=== PATIENT | female | born 1970 | race African-American/Black ===

== ENCOUNTER 2017-03-21 22:03 | Emergency (ER) | payer MEDICARE, MEDICAID ==
[~2017-03-21] VITALS: Ht 160 cm; Wt 88.5 kg
[~2017-03-21 22:03] MED LIST: ACYCLOVIR400 MG ORAL; ALBUTEROL SULF8.5 GM INH; AZITHROMYCIN250 MG ORAL; BENADRYL50 MG ORAL; CIPRO HC OTIC S10 M1 OT; CLARITIN10 M1 ORAL; CLINDAMYCIN HC300 MG ORAL; COLACE100 MG PO; CYCLOBENZAPRINE10 MG ORAL; DEBROX15 M1 OT; FLONASE1 SPRAYS NASAL; GENTAK3.5 GM OP; IBUPROFEN600 MG ORAL; IBUPROFEN800 MG ORAL; KEFLEX500 MG ORAL; KENALOG 0.1% CR15 GM APPLIC; MEDROL DOSEPAK4 MG ORAL; METRONIDAZOLE500 MG ORAL; NAPROSYN500 M1 ORAL; NKM; NYSTATIN100000 UN1 ORAL; PHENAZOPYRIDIN100 MG ORAL; PREDNISONE20 M1 PO; PREDNISONE20 MG ORAL; PROMETHAZINE-C118 M1 ORAL; PROMETHAZINE-D118 ML ORAL; PSEUDOEPHEDRINE30 MG PO; ROBAXIN500 MG PO; SUDAFED60 MG ORAL; TESSALON PERLE100 M2 ORAL; TESSALON PERLE100 MG ORAL; TRAMADOL HCL50 MG ORAL; TRIAMCINOLONE A80 GM TP; VICODIN 5-5001 EACH PO
[2017-03-21 22:10] VITALS: BP 151/88
[2017-03-21] MEDS ORDERED: HYDROCORTISONE28 G2 TP (23:08)
[2017-03-21] MEDS ORDERED: CLARITIN10 M2 ORAL (23:08)
[2017-03-21 23:20] VITALS: BP 137/79
--- NOTE | 2017-03-22 20:49 | Emergency Room Report ---
History of Present Illness General Chief Complaint: Vaginal Source: Patient Present Illness HPI Patient is a 46-year-old female presented after increased vaginal discharge. She gradual onset of symptoms. Patient reports having increased a vulvar itching. She reports having some skin lesions to her vulvar area. She denied vomiting she denied severe pain. Allergies: Coded Allergies: No Known Allergies (Unverified , 03/21/17) Patient History Past Medical History: see triage record Last Menstrual Period: this week Now: No Reviewed Nursing Documentation: PMH: Agreed, PSxH: Agreed Nursing Documentation-PMH Past Medical History: No History, Except For Hx Cardiac Problems: Yes - alopecia, eczcema Review of Systems All Other Systems: negative except mentioned in HPI Physical Exam Vital Signs Date Time Temp Pulse Resp B/P Pulse Ox O2 Delivery O2 Flow Rate FiO2 03/21/17 22:10 98.2 67 16 151/88 99 Room Air General Appearance: well appearing, no apparent distress Head: normocephalic, atraumatic ENT: hearing grossly normal, normal voice Neck: full range of motion, supple Respiratory: no respiratory distress, speaking full sentences Cardiovascular #1: normal peripheral pulses, no edema Gastrointestinal: normal inspection, non tender, soft Genitourinary: normal inspection, no CVA tenderness, other - slight increased papular lesion to vulvar area, no discharge noted Musculoskeletal: no calf tenderness Neurologic: normal gait Psychiatric: mood/affect normal Skin: no rash Medical Decision Making Diagnostic Impression: Primary Impression: Vaginitis ER Course The patient presented for vulvar lesion. Differential diagnosis included wasn' t limited to folliculitis, herpes, among others. Patient's benign exam and does not appear to require any further imaging or laboratory testing at this time. Patient is advised to followup with her [facility] for reevaluation. Patient was given prescription for hydrocortisone cream and she appears to have some evidence of a contact dermatitis. Last Vital Signs Date Time Temp Pulse Resp B/P Pulse Ox O2 Delivery O2 Flow Rate FiO2 03/21/17 23:21 98.2 88 16 137/79 99 Room Air Status: improved Disposition: HOME, SELF-CARE Condition: Stable Scripts Loratadine (CLARITIN) 10 Mg Capsule 10 MG ORAL DAILY, #30 CAP Prov: Navarro Mckeon 03/21/17 Hydrocortisone Acetate 1% Onit (HYDROCORTISONE 1% OINT) Y Oint 28 GM TP DAILY, #30 GM Prov: Navarro Mckeon 03/21/17 Referrals: [facility]ERR[facility] (PCP) Patient Instructions: Vaginitis Navarro Mckeon March 22, 2017 20:49
== END 2017-03-21 23:21 | disposition home or self-care (01) ==
LOC: EMR 22:25
DX: N76.0 Acute vaginitis (principal)
CPT/HCPCS: 99284

== ENCOUNTER 2017-08-11 12:10 | Emergency (ER) | payer MEDICARE, MEDICAID ==
[~2017-08-11] VITALS: Ht 160 cm; Wt 88.0 kg
[~2017-08-11 12:10] MED LIST changes: +CLARITIN10 M2 ORAL; +HYDROCORTISONE28 G2 TP
[2017-08-11] MEDS ORDERED: TRIAMCINOLONE10 G1 MC ×2 (12:41→12:56)
--- NOTE | 2017-08-11 12:42 | Emergency Room Report ---
History of Present Illness General Chief Complaint: bump on tongue Present Illness HPI Patient is a 47-year-old female who presents today with a "bump" on her tongue she noticed 3 days ago. Patient states she has some mild pain in the "bump" is rubbing against her dental implant on the same side. Patient also states she has a history of eczema and has noticed a minute itchy rash on her bilateral upper extremities and trunk. She denies shortness of breath, fever, chills or associated symptoms. Allergies: Coded Allergies: No Known Allergies (Unverified , 03/21/17) Patient History Reviewed Nursing Documentation: PMH: Agreed, PSxH: Agreed Nursing Documentation-PMH Hx Cardiac Problems: Yes - alopecia, eczcema Review of Systems ENT: Reports: other - "bump" on tongue Skin: Reports: rash All Other Systems: negative except mentioned in HPI Physical Exam Sp02 EP Interpretation: reviewed, normal General Appearance: no apparent distress, alert, GCS 15, non-toxic Head: normocephalic, atraumatic Eyes: bilateral eye normal inspection, bilateral eye PERRL ENT: hearing grossly normal, normal pharynx, no angioedema, normal voice, other - apthous ulcer on lateral aspect of left side of tongue. No ludwigs angina or peritonsilar abscess Neck: full range of motion, supple/symm/no masses Respiratory: chest non-tender, lungs clear, normal breath sounds, speaking full sentences Cardiovascular #1: regular rate, rhythm, no edema Cardiovascular #2: 2+ carotid (R), 2+ carotid (L), 2+ radial (R), 2+ radial (L) , 2+ dorsalis pedis (R), 2+ dorsalis pedis (L) Gastrointestinal: normal bowel sounds, non tender, soft, non-distended, no guarding, no rebound Rectal: deferred Genitourinary: normal inspection, no CVA tenderness Musculoskeletal: back normal, gait/station normal, normal range of motion, non- tender, calf tenderness Neurologic: alert, oriented x3, responsive, motor strength/tone normal, sensory intact, speech normal Psychiatric: judgement/insight normal, memory normal, mood/affect normal, no suicidal/homicidal ideation Reflexes: 3+ bicep (R), 3+ bicep (L), 3+ tricep (R), 3+ tricep (L), 3+ knee (R) , 3+ knee (L) Skin: normal color, warm/dry, well hydrated, rash - maculopapular erruption on trunk and bLE Lymphatic: no adenopathy Medical Decision Making PA Attestation Resident physician is Dr. Mckeon ER Course Patient have an abscess ulcer on her tongue that, will prescribe Magic mouth rinse. And no need for further workup. Patient also found to have eczematous eruption on her upper extremities and trunk. Will prescribe transit and will dermatology. In patient with plan. Status: improved Disposition: HOME, SELF-CARE Condition: Stable Scripts Triamcinolone (TRIAMCINOLONE) 10 Gm Powder 10 GM MC BID, #20 GM Prov: Cammy Ace P.A. 08/11/17 Triamcinolone (TRIAMCINOLONE) 10 Gm Powder 10 GM MC BID, #14 GM Prov: Cammy Ace P.A. 08/11/17 Cammy Ace P.AZan Aug 11, 2017 12:42
[2017-08-11 12:58] VITALS: BP 104/69
[2017-08-11] MEDS ORDERED: TRIAMCINOLONE A15 G1 TP (15:23)
== END 2017-08-11 13:02 | disposition home or self-care (01) ==
LOC: EMR 12:41
DX: K12.0 Recurrent oral aphthae (principal); R21 Rash and other nonspecific skin eruption
CPT/HCPCS: 99283

== ENCOUNTER 2017-11-24 16:21 | Emergency (ER) | payer MEDICARE, MEDICAID ==
[~2017-11-24] VITALS: Ht 160 cm; Wt 86.2 kg
[~2017-11-24 16:21] MED LIST changes: +TRIAMCINOLONE A15 G1 TP; +TRIAMCINOLONE10 G1 MC
[2017-11-24 17:03] LABS: APPEARANCE,URINE CLEAR; BILIRUBIN, URINE NEGATIVE (NEGATIVE); COLOR,URINE PALE YELLOW; GLUCOSE, URINE (UA) NEGATIVE (NEGATIVE); KETONES,URINE NEGATIVE (NEGATIVE); LEUKOCYTE ESTERASE ,URINE NEGATIVE (NEGATIVE); NITRITE,URINE NEGATIVE (NEGATIVE); PH,URINE 6.5 (4.5-8.0); PROTEIN,URINE NEGATIVE (NEGATIVE); UROBILINOGEN,URINE NORMAL MG/DL (0.0-1.0)
[2017-11-24] MEDS ORDERED: NAPROXEN500 M2 ORAL (17:35)
[2017-11-24 17:45] VITALS: BP 126/86
--- NOTE | 2017-11-24 22:58 | Emergency Room Report ---
History of Present Illness General Chief Complaint: General Complaint Source: Patient Present Illness HPI The patient is a 47 old female presenting for concern of not having her period for the past month. She states that she is usually regular every month. She denies any medical problems. She denies any pain or other symptoms including dysuria, hematuria, vaginal discharge, back pain, abdominal pain Allergies: Coded Allergies: No Known Allergies (Unverified , 03/21/17) Patient History Past Medical History: see triage record Pertinent Family History: none Last Menstrual Period: "More than a month." Now: No Reviewed Nursing Documentation: PMH: Agreed, PSxH: Agreed Review of Systems All Other Systems: negative except mentioned in HPI Physical Exam Vital Signs Date Time Temp Pulse Resp B/P (MAP) Pulse Ox O2 Delivery O2 Flow Rate FiO2 11/24/17 16:41 98.1 72 16 122/81 97 Room Air Sp02 EP Interpretation: reviewed, normal General Appearance: no apparent distress, alert, GCS 15, non-toxic Head: normocephalic, atraumatic Eyes: bilateral eye normal inspection, bilateral eye PERRL ENT: hearing grossly normal, normal pharynx, no angioedema, normal voice Respiratory: chest non-tender, lungs clear, normal breath sounds, speaking full sentences Gastrointestinal: normal bowel sounds, non tender, soft, non-distended, no guarding, no rebound Rectal: deferred Genitourinary: normal inspection, no CVA tenderness Musculoskeletal: back normal, gait/station normal, normal range of motion, non- tender Neurologic: alert, oriented x3, responsive, motor strength/tone normal, sensory intact, speech normal Psychiatric: judgement/insight normal, memory normal, mood/affect normal, no suicidal/homicidal ideation Skin: normal color, no rash, warm/dry, well hydrated Medical Decision Making PA Attestation Dr. Kendall is my supervising physician. Patient management was discussed with my supervising physician Diagnostic Impression: Primary Impression: Perimenopause ER Course The patient is a 47 old female presenting for concern of not having her period for the past month Differential diagnosis considered but not limited to: perimenopause, UTI, vaginitis, , among others PE: Vitals WNL. NAD. Abdomen: Normal appearance. Non distended. No ecchymosis. Normal BS. Non TTP. No McBurney point tenderness. No guarding. No CVA tenderness Urinalysis unremarkable The patient be discharged home with prescription for Motrin and will follow up with her primary doctor. ER Precautions are given Laboratory Tests Test 11/24/17 16:54 Urine Color Pale yellow Urine Appearance Clear Urine pH 6.5 (4.5-8.0) Urine Specific [place] 1.015 (1.005-1.035) Urine Protein Negative (NEGATIVE) Urine Glucose (UA) Negative (NEGATIVE) Urine Ketones Negative (NEGATIVE) Urine Occult Blood Negative (NEGATIVE) Urine Nitrite Negative (NEGATIVE) Urine Bilirubin Negative (NEGATIVE) Urine Urobilinogen Normal MG/DL (0.0-1.0) Urine Leukocyte Esterase Negative (NEGATIVE) Urine HCG, Qualitative Negative Lab Results Impression Unremarkable Last Vital Signs Date Time Temp Pulse Resp B/P (MAP) Pulse Ox O2 Delivery O2 Flow Rate FiO2 11/24/17 17:45 98.1 72 16 126/86 98 Room Air Status: improved Disposition: HOME, SELF-CARE Condition: Improved Scripts Naproxen* (NAPROXEN*) 500 Mg Tablet 500 MG ORAL TWICE A WEEK, #60 TAB 0 Refills Prov: ANAHY CAMARILLO 11/24/17 Referrals: NON PHYSICIAN (PCP) Patient Instructions: Menopause Additional Instructions: I discussed my findings with the patient. All questions and concerns have been answered. Treatment and medication compliance have been addressed. I advised the patient that they need to follow up with PMD in 3-5 days. Return to ED if symptoms worsen, new symptoms arise, or if needed for any reason. Patient verbalized understanding of discharge instructions. ANAHY CAMARILLO Nov 24, 2017 22:58
== END 2017-11-24 17:45 | disposition home or self-care (01) ==
LOC: EMR 17:40
DX: N92.6 Irregular menstruation, unspecified (principal)
CPT/HCPCS: 81003; 81025; 99283

== ENCOUNTER 2018-02-09 15:02 | Emergency (ER) | payer MEDICARE, MEDICAID ==
[~2018-02-09] VITALS: Ht 160 cm; Wt 86.2 kg
[~2018-02-09 15:02] MED LIST changes: +NAPROXEN500 M2 ORAL
[2018-02-09] MEDS ORDERED: antibiotics (15:15)
[2018-02-09 16:13] LABS: APPEARANCE,URINE SLIGHTLY CLOUDY; BILIRUBIN, URINE NEGATIVE (NEGATIVE); COLOR,URINE PALE YELLOW; GLUCOSE, URINE (UA) NEGATIVE (NEGATIVE); KETONES,URINE NEGATIVE (NEGATIVE); LEUKOCYTE ESTERASE ,URINE 1+ (NEGATIVE); NITRITE,URINE NEGATIVE (NEGATIVE); PH,URINE 6 (4.5-8.0); PROTEIN,URINE NEGATIVE (NEGATIVE); UROBILINOGEN,URINE NORMAL MG/DL (0.0-1.0)
[2018-02-09] MEDS ORDERED: Fluconazole 100mg tab ORAL ONE (16:30)
[2018-02-09] MEDS ORDERED: BACITRACIN15 GM TOPIC (16:48)
[2018-02-09 16:50] VITALS: BP 125/66
--- NOTE | 2018-02-09 20:54 | Emergency Room Report ---
History of Present Illness General Chief Complaint: Vaginal Source: Patient Present Illness HPI The patient is a 47 revealed female presenting for possible vaginal infection. She states that she is currently taking antibiotics after facial surgery. She began to develop a thick white discharge 2 days ago. She also admits to itching in the pelvic region. She denies other symptoms including dysuria, hematuria, abdominal pain, nausea, vomiting, back pain Allergies: Coded Allergies: No Known Allergies (Unverified , 03/21/17) Patient History Past Medical History: see triage record Pertinent Family History: none Now: No Reviewed Nursing Documentation: PMH: Agreed; PSxH: Agreed Nursing Documentation-PMH Past Medical History: No History, Except For Review of Systems All Other Systems: negative except mentioned in HPI Physical Exam Vital Signs Date Time Temp Pulse Resp B/P (MAP) Pulse Ox O2 Delivery O2 Flow Rate FiO2 02/09/18 15:10 98.1 65 19 137/88 100 Room Air 98.1 Sp02 EP Interpretation: reviewed, normal General Appearance: no apparent distress, alert, GCS 15, non-toxic Head: normocephalic, atraumatic Eyes: bilateral eye normal inspection, bilateral eye PERRL ENT: hearing grossly normal, normal pharynx, no angioedema, normal voice Neck: full range of motion, supple/symm/no masses Respiratory: chest non-tender, lungs clear, normal breath sounds, speaking full sentences Gastrointestinal: normal bowel sounds, non tender, soft, non-distended, no guarding, no rebound Rectal: deferred Genitourinary: normal inspection, no CVA tenderness, other - Vaginal: thick white DC noted. No odor. Musculoskeletal: back normal, gait/station normal, normal range of motion, non- tender Neurologic: alert, oriented x3, responsive, motor strength/tone normal, sensory intact, speech normal Psychiatric: judgement/insight normal, memory normal, mood/affect normal, no suicidal/homicidal ideation Skin: normal color, no rash, warm/dry, well hydrated, abrasions - Labia Medical Decision Making PA Attestation Dr. Inman is my supervising physician. Patient management was discussed with my supervising physician Diagnostic Impression: Primary Impression: Abrasion Additional Impression: Vaginal yeast infection ER Course The patient is a 47 revealed female presenting for possible vaginal infection Differential diagnosis considered but not limited to: Vaginal yeast infection, UTI, vaginitis, pyelonephritis, pyelonephrosis, PID, ectopic PE: Vitals WNL. NAD. Abdomen: Normal appearance. Non distended. No ecchymosis. Normal BS. Non TTP. No McBurney point tenderness. No guarding. Pelvic exam: Done with nurse in room. Minor abrasion to labia. White DC noted. No odor No CVA tenderness UA unremarkable. Neg preg The patient is treated with Diflucan in the emergency department on be discharged home with prescription for bacitracin. ER precautions are given Laboratory Tests Test 02/09/18 15:20 Urine Color Pale yellow Urine Appearance Slightly cloudy Urine pH 6 (4.5-8.0) Urine Specific [place] 1.015 (1.005-1.035) Urine Protein Negative (NEGATIVE) Urine Glucose (UA) Negative (NEGATIVE) Urine Ketones Negative (NEGATIVE) Urine Occult Blood Negative (NEGATIVE) Urine Nitrite Negative (NEGATIVE) Urine Bilirubin Negative (NEGATIVE) Urine Urobilinogen Normal MG/DL (0.0-1.0) Urine Leukocyte Esterase 1+ (NEGATIVE) H Urine RBC 0-2 /HPF (0 - 2) Urine WBC 0-2 /HPF (0 - 2) Urine Squamous Epithelial Cells Moderate /LPF (NONE/OCC) H Urine Bacteria Few /HPF (NONE) Urine HCG, Qualitative Negative (NEGATIVE) Lab Results Impression squamous cells. Otherwise unremarkable Last Vital Signs Date Time Temp Pulse Resp B/P (MAP) Pulse Ox O2 Delivery O2 Flow Rate FiO2 02/09/18 16:50 98.6 76 15 125/66 99 Room Air Status: improved Disposition: HOME, SELF-CARE Condition: Improved Scripts Bacitracin (Bacitracin) 28.4 Gm Oint...g. 1 APPLIC TOPIC THREE TIMES A DAY, #28 GM Prov: ANAHY CAMARILLO 02/09/18 Referrals: [facility] (PCP) Patient Instructions: Abrasion, Vaginal Yeast Infection, Adult Additional Instructions: I discussed my findings with the patient. All questions and concerns have been answered. Treatment and medication compliance have been addressed. I advised the patient that they need to follow up with PMD in 3-5 days. Return to ED if symptoms worsen, new symptoms arise, or if needed for any reason. Patient verbalized understanding of discharge instructions. ANAHY CAMARILLO Feb 09, 2018 20:54
== END 2018-02-09 16:50 | disposition home or self-care (01) ==
LOC: EMR 16:00
DX: B37.3 Candidiasis of vulva and vagina (principal); S30.814A Abrasion of vagina and vulva, initial encounter; X58.XXXA Exposure to other specified factors, initial encounter; Y92.9 Unspecified place or not applicable
CPT/HCPCS: 81003; 81025; 99283

== ENCOUNTER 2018-05-19 17:12 | Emergency (ER) | payer MEDICARE, MEDICAID ==
[~2018-05-19] VITALS: Ht 160 cm; Wt 87.1 kg
[~2018-05-19 17:12] MED LIST changes: +BACITRACIN15 GM TOPIC; +antibiotics
[2018-05-19 17:20] VITALS: BP 106/75
--- NOTE | 2018-05-19 17:32 | Emergency Room Report ---
History of Present Illness General Chief Complaint: Skin Rash/Abscess Source: Patient, Medical Record Present Illness HPI 47-year-old female with history of alopecia here complaining of 2 days of pruritic rash on face and torso and upper extremities. Patient claims that the rash started after visiting her aunt's at her house, denies exposure to new allergens, denies exposure to animals, new food, corneal medication intake. Patient mentioned that every time that she goes to her oncologist she breaks into hives. Denies painful lesions, SOB, chest pain, difficulty swallowing, dictation, headache. Patient has not been taking any Benadryl or any other allergy medications as she is afraid it will make her sleepy. she further denies any recent travel. Patient also complains of 2 days of rhinorrhea, congestion, denies fever/chills , cough, SOB, sore throat, ear pain. Patient has not been taking any decongestants or any other medication for relief of her symptoms Allergies: Coded Allergies: No Known Allergies (Unverified , 03/21/17) Patient History Past Medical History: see triage record Past Surgical History: none Pertinent Family History: none Now: No Immunizations: UTD Reviewed Nursing Documentation: PMH: Agreed; PSxH: Agreed Nursing Documentation-PMH Past Medical History: No History, Except For Review of Systems All Other Systems: negative except mentioned in HPI Physical Exam Vital Signs Date Time Temp Pulse Resp B/P (MAP) Pulse Ox O2 Delivery O2 Flow Rate FiO2 05/19/18 17:15 97.9 78 18 106/75 98 Room Air 97.9 Sp02 EP Interpretation: reviewed, normal General Appearance: normal inspection, well appearing, no apparent distress Head: normocephalic, atraumatic Eyes: bilateral eye normal inspection, bilateral eye PERRL ENT: normal ENT inspection, normal pharynx, no angioedema, uvula midline, moist mucus membranes, other - diffuse papular rash on face and neck Neck: normal inspection, full range of motion, supple Respiratory: normal inspection, chest non-tender, lungs clear, normal breath sounds, no rhonchi, no respiratory distress, no retraction, no accessory muscle use Cardiovascular #1: normal inspection, normal peripheral pulses, regular rate, rhythm, no edema, no gallop, no murmur Gastrointestinal: normal inspection, normal bowel sounds, non tender, soft Rectal: deferred Genitourinary: deferred Musculoskeletal: normal inspection, back normal Neurologic: normal inspection, alert, oriented x3 Psychiatric: normal inspection, judgement/insight normal, memory normal Skin: warm/dry, rash - diffuse papules on face, trunk, upper extremities, Lymphatic: normal inspection, no adenopathy, axilla node tender (R) Medical Decision Making PA Attestation all patient's orders, diagnosis, treatment plans were discussed and reviewed by myself provider physician Dr. Vann Diagnostic Impression: Primary Impression: Allergic reaction, urticaria Additional Impression: URI (upper respiratory infection) ER Course 47-year-old female with history of alopecia here complaining of 2 days of pruritic rash on face and torso and upper extremities. Patient claims that the rash started after visiting her aunt's at her house, denies exposure to new allergens, denies exposure to animals, new food, corneal medication intake. Patient mentioned that every time that she goes to her oncologist she breaks into hives. Denies painful lesions, SOB, chest pain, difficulty swallowing, dictation, headache. Patient has not been taking any Benadryl or any other allergy medications as she is afraid it will make her sleepy. she further denies any recent travel. Patient also complains of 2 days of rhinorrhea, congestion, denies fever/chills , cough, SOB, sore throat, ear pain. Patient has not been taking any decongestants or any other medication for relief of her symptoms Ddx considered but are not limited to allergic reaction unspecified, URI, anaphyalsis Vital signs: are WNL, pt. is afebrile H&PE are most consistent with allergic reaction unseprificed, URI ORDERS: hdyrocrotisone cream, medrol dose pack, benadryl, mucinex D ED INTERVENTIONS: None required at this time. DISCHARGE: At this time pt. is stable for d/c to home. Will provide printed patient care instructions, and any necessary prescriptions. Care plan and follow up instructions have been discussed with the patient prior to discharge. Last Vital Signs Date Time Temp Pulse Resp B/P (MAP) Pulse Ox O2 Delivery O2 Flow Rate FiO2 05/19/18 17:20 97.9 84 18 106/75 98 Room Air 97.9 Disposition: HOME, SELF-CARE Condition: Stable Scripts Guaifenesin/Pseudoephedrne Hcl (MUCINEX D ER 600-60 MG TABLET) 1 Each Tab.er.12h 1 EACH PO BID for 5 Days, #10 TAB Prov: Kali Walsh 05/19/18 Hydrocortisone (Hydrocortisone Cream 2.5%) Y Cream.appl 1 APPLIC TP BID for 10 Days, GM Prov: Kali Walsh 05/19/18 Diphenhydramine HCl (Benadryl) 25 Mg Capsule 25 MG PO EVERY 12 HOURS, #20 CAP Prov: Kali Walsh 05/19/18 Methylprednisolone* (MEDROL*) 4 Mg Tablet 4 MG ORAL DAILY, #10 TAB 0 Refills Prov: Kali Walsh 05/19/18 Patient Instructions: Upper Respiratory Infection, Adult, Rash Additional Instructions: take medication as directed, taper steroids, do not take steroids and benadryl at the same time. steroids may cause increased in blood pressure. if fever/ chills, difficulty breathing retrun to ED. follow up with pcp in 2 days. Kali Walsh May 19, 2018 17:32
[2018-05-19] MEDS ORDERED: MEDROL4 MG ORAL (17:35)
[2018-05-19] MEDS ORDERED: MUCINEX D ER 61 EACH PO (17:35)
[2018-05-19] MEDS ORDERED: HYDROCORTISONE30 G2 TP (17:35)
[2018-05-19] MEDS ORDERED: BENADRYL25 M3 PO (17:35)
[2018-05-19 17:40] VITALS: BP 106/75
== END 2018-05-19 17:40 | disposition home or self-care (01) ==
LOC: EMR 17:35
DX: L50.0 Allergic urticaria (principal); J06.9 Acute upper respiratory infection, unspecified
CPT/HCPCS: 99284

== ENCOUNTER 2018-05-25 11:30 | Emergency (ER) | payer MEDICARE, MEDICAID ==
[~2018-05-25] VITALS: Ht 160 cm; Wt 85.3 kg
[~2018-05-25 11:30] MED LIST changes: +BENADRYL25 M3 PO; +HYDROCORTISONE30 G2 TP; +MEDROL4 MG ORAL; +MUCINEX D ER 61 EACH PO
[2018-05-25 11:46] VITALS: BP 115/79
[2018-05-25] MEDS ORDERED: Sodium Chloride 500ML 500 ML IV ONE (11:54)
[2018-05-25] MEDS ORDERED: Isovue-300 100ml vial INJ PRN (12:00)
[2018-05-25] MEDS ORDERED: Morphine Sulfate 4mg/ml Inj IVP ONE (12:00)
[2018-05-25 12:31] LABS: BASOPHILS % (AUTO) 1.3 % (0.0-2.0); EOSINOPHILS % (AUTO) 1.5 % (0.0-3.0); HEMOGLOBIN 13.4 G/DL (12.0-16.0); LYMPHOCYTES % (AUTO) 35.8 % (20.0-45.0); MEAN CORPUSCULAR VOLUME 83 FL (80-99); MONOCYTES % (AUTO) 8.2 % (1.0-10.0); NEUTROPHILS % (AUTO) 53.3 % (45.0-75.0); PLATELET COUNT 279 K/UL (150-450); RED BLOOD COUNT 5.03 M/UL (4.20-5.40); RED CELL DISTRIBUTION WIDTH 13.2 % (11.6-14.8); WHITE BLOOD COUNT 6.1 K/UL (4.8-10.8)
[2018-05-25 12:33] LABS: APPEARANCE,URINE CLEAR; BILIRUBIN, URINE NEGATIVE (NEGATIVE); GLUCOSE, URINE (UA) NEGATIVE (NEGATIVE); KETONES,URINE NEGATIVE (NEGATIVE); LEUKOCYTE ESTERASE ,URINE NEGATIVE (NEGATIVE); NITRITE,URINE NEGATIVE (NEGATIVE); PH,URINE 6 (4.5-8.0); PROTEIN,URINE NEGATIVE (NEGATIVE); UROBILINOGEN,URINE NORMAL MG/DL (0.0-1.0)
[2018-05-25 12:36] LABS: ANION GAP 7 mmol/L (5-15); BLOOD UREA NITROGEN 18 mg/dL (7-18); CALCIUM 9.3 MG/DL (8.5-10.1); CARBON DIOXIDE 30 MMOL/L (21-32); CHLORIDE 101 MMOL/L (98-107); CREATININE 0.9 MG/DL (0.55-1.30); POTASSIUM 3.8 MMOL/L (3.5-5.1); SODIUM 138 MMOL/L (136-145)
[2018-05-25 12:38] LABS: COLOR,URINE YELLOW
[2018-05-25 12:40] LABS: ALANINE AMINOTRANSFERASE 25 U/L (12-78); ALBUMIN 3.9 G/DL (3.4-5.0); ALBUMIN/GLOBULIN RATIO 0.9 (1.0-2.7); ALKALINE PHOSPHATASE 83 U/L (46-116); ASPARTATE AMINO TRANSFERASE 19 U/L (15-37); BILIRUBIN,TOTAL 0.3 MG/DL (0.2-1.0)
--- NOTE | 2018-05-25 13:36 | Emergency Room Report ---
History of Present Illness General Chief Complaint: Abdominal Pain Source: Patient Present Illness HPI 47-year-old female presents ED for evaluation. Patient complaining of abdominal pain for last 2 weeks. Pain is localized to left upper quadrant, 7 out of 10, dull, nonradiating. Denies fevers chills. Denies nausea or vomiting. Denies chest pain or shortness of breath. Denies dysuria or hematuria. No other aggravating relieving factors. Denies any other associated symptoms Allergies: Coded Allergies: No Known Allergies (Unverified , 03/21/17) Patient History Past Medical History: none Past Surgical History: none Pertinent Family History: none Social History: Denies: smoking, alcohol use, drug use Last Menstrual Period: 05/18/18 Now: No Immunizations: UTD Reviewed Nursing Documentation: PMH: Agreed; PSxH: Agreed Nursing Documentation-PMH Past Medical History: No History, Except For Review of Systems All Other Systems: negative except mentioned in HPI Physical Exam Vital Signs Date Time Temp Pulse Resp B/P (MAP) Pulse Ox O2 Delivery O2 Flow Rate FiO2 05/25/18 11:33 98.5 60 16 115/79 95 Room Air 98.4 Sp02 EP Interpretation: reviewed, normal General Appearance: no apparent distress, alert, GCS 15, non-toxic Head: normocephalic, atraumatic Eyes: bilateral eye normal inspection, bilateral eye PERRL ENT: hearing grossly normal, normal pharynx, no angioedema, normal voice Neck: full range of motion, supple/symm/no masses Respiratory: chest non-tender, lungs clear, normal breath sounds, speaking full sentences Cardiovascular #1: regular rate, rhythm, no edema Cardiovascular #2: 2+ carotid (R), 2+ carotid (L), 2+ radial (R), 2+ radial (L) , 2+ dorsalis pedis (R), 2+ dorsalis pedis (L) Gastrointestinal: normal bowel sounds, soft, non-distended, no guarding, no rebound, tenderness - LUQ Rectal: deferred Genitourinary: normal inspection, no CVA tenderness Musculoskeletal: back normal, gait/station normal, normal range of motion, non- tender Neurologic: alert, oriented x3, responsive, motor strength/tone normal, sensory intact, speech normal Psychiatric: judgement/insight normal, memory normal, mood/affect normal, no suicidal/homicidal ideation Reflexes: 3+ bicep (R), 3+ bicep (L), 3+ tricep (R), 3+ tricep (L), 3+ knee (R) , 3+ knee (L) Skin: normal color, no rash, warm/dry, well hydrated Lymphatic: no adenopathy Medical Decision Making Diagnostic Impression: Primary Impression: Enteritis ER Course Hospital Course 47-year-old F presents to ED with abdominal pain Differential diagnosis includes-appendicitis, cholecystitis, small bowel obstruction, gastritis, Clinical course Patient placed on stretcher. After initial history and physical I ordered labs , IV fluids, pain medications and CT scan Labs - no leukocytosis, electrolytes ok, LFTs normal, UA unremarkable CT scan shows some enteritis, some constipation, hepatic lesions ? hemangioma Discussed findings with the patient. Discussed the hepatic lesions and recommend close follow-up with PMD for outpatient workup. I feel this is a highly complex case requiring extensive working including EKG/ Rhythm strip, Xray/CT/US, Blood/urine lab work, repeat exams while in ED, and administration of strong opiates/narcotics for pain control, admission to hospital or close patient follow up. Diagnosis - enteritis Stable and discharged to home with Rx Bentyl, Zantac. Followup with PMD. Return to ED if symptoms recur or worsen Labs Test 05/25/18 11:50 05/25/18 11:55 White Blood Count 6.1 K/UL (4.8-10.8) Red Blood Count 5.03 M/UL (4.20-5.40) Hemoglobin 13.4 G/DL (12.0-16.0) Hematocrit 42.0 % (37.0-47.0) Mean Corpuscular Volume 83 FL (80-99) Mean Corpuscular Hemoglobin 26.6 PG (27.0-31.0) Mean Corpuscular Hemoglobin Concent 31.9 G/DL (32.0-36.0) Red Cell Distribution Width 13.2 % (11.6-14.8) Platelet Count 279 K/UL (150-450) Mean Platelet Volume 5.9 FL (6.5-10.1) Neutrophils (%) (Auto) 53.3 % (45.0-75.0) Lymphocytes (%) (Auto) 35.8 % (20.0-45.0) Monocytes (%) (Auto) 8.2 % (1.0-10.0) Eosinophils (%) (Auto) 1.5 % (0.0-3.0) Basophils (%) (Auto) 1.3 % (0.0-2.0) Sodium Level 138 MMOL/L (136-145) Potassium Level 3.8 MMOL/L (3.5-5.1) Chloride Level 101 MMOL/L (98-107) Carbon Dioxide Level 30 MMOL/L (21-32) Anion Gap 7 mmol/L (5-15) Blood Urea Nitrogen 18 mg/dL (7-18) Creatinine 0.9 MG/DL (0.55-1.30) Estimat Glomerular Filtration Rate > 60 mL/min (>60) Glucose Level 77 MG/DL (74-106) Calcium Level 9.3 MG/DL (8.5-10.1) Total Bilirubin 0.3 MG/DL (0.2-1.0) Aspartate Amino Transf (AST/SGOT) 19 U/L (15-37) Alanine Aminotransferase (ALT/SGPT) 25 U/L (12-78) Alkaline Phosphatase 83 U/L (46-116) Total Protein 8.1 G/DL (6.4-8.2) Albumin 3.9 G/DL (3.4-5.0) Globulin 4.2 g/dL Albumin/Globulin Ratio 0.9 (1.0-2.7) Lipase 126 U/L (73-393) Urine Color Yellow Urine Appearance Clear Urine pH 6 (4.5-8.0) Urine Specific [place] 1.015 (1.005-1.035) Urine Protein Negative (NEGATIVE) Urine Glucose (UA) Negative (NEGATIVE) Urine Ketones Negative (NEGATIVE) Urine Occult Blood Negative (NEGATIVE) Urine Nitrite Negative (NEGATIVE) Urine Bilirubin Negative (NEGATIVE) Urine Urobilinogen Normal MG/DL (0.0-1.0) Urine Leukocyte Esterase Negative (NEGATIVE) Urine HCG, Qualitative Negative (NEGATIVE) CT/MRI/US Diagnostic Results CT/MRI/US Diagnostic Results : Imaging Test Ordered: CT A/P Impression 1. Mild fluid distention of small bowel loops which may represent mild ileus or enteritis. No evidence of bowel obstruction. 2. Mild constipation. 3. Scattered hypoenhancing hepatic lesions, largest measuring 2.2 cm in the posterior right hepatic lobe. These likely represent hemangiomas but remain indeterminate. If there is continued clinical concern, these can be further characterized with ultrasound and/or MRI Last Vital Signs Date Time Temp Pulse Resp B/P (MAP) Pulse Ox O2 Delivery O2 Flow Rate FiO2 05/25/18 12:48 98.4 05/25/18 11:46 16 115/79 95 Room Air 05/25/18 11:33 60 Status: improved Disposition: HOME, SELF-CARE Condition: Stable Scripts Ranitidine Hcl* (ZANTAC*) 150 Mg Tablet 150 MG ORAL TWICE A DAY, #30 TAB Prov: Abelino Tinajero MD 05/25/18 Dicyclomine Hcl* (DICYCLOMINE HCL*) 10 Mg Capsule 10 MG PO QID, #20 CAP Prov: Abelino Tinajero MD 05/25/18 Referrals: NON PHYSICIAN (PCP) Abelino Tinajero MD May 25, 2018 13:36
--- NOTE | 2018-05-25 13:47 | Diagnostic Imaging Report ---
EXAM: CT Abdomen and Pelvis With Intravenous Contrast CLINICAL HISTORY: ABD PAIN TECHNIQUE: Axial computed tomography images of the abdomen and pelvis with intravenous contrast. CTDI is 19.22 mGy and DLP is 1080 mGy-cm. One or more of the following dose reduction techniques were used: automated exposure control, adjustment of the mA and/or kV according to patient size, use of iterative reconstruction technique. COMPARISON: No relevant prior studies available. FINDINGS: Lung bases: Unremarkable. No mass. No consolidation. ABDOMEN: Liver: Scattered hypoenhancing hepatic lesions, largest measuring 2.2 cm in the posterior right hepatic lobe (series 3 image 13). Gallbladder and bile ducts: Unremarkable. No calcified stones. No ductal dilation. Pancreas: Unremarkable. No mass. No ductal dilation. Spleen: Unremarkable. No splenomegaly. Adrenals: Unremarkable. No mass. Kidneys and ureters: Unremarkable. No solid mass. No hydronephrosis. Stomach and bowel: Mild fluid distention of small bowel loops which may represent mild ileus or enteritis. No evidence of bowel obstruction. Mild constipation. PELVIS: Appendix: No findings to suggest acute appendicitis. Bladder: Unremarkable. No mass. Reproductive: Unremarkable as visualized. ABDOMEN and PELVIS: Intraperitoneal space: Unremarkable. No free air. No significant fluid collection. Bones/joints: No acute fracture. No dislocation. Soft tissues: Unremarkable. Vasculature: Atherosclerotic calcifications throughout the abdominal aorta and its proximal branches. No aneurysmal dilatation. Lymph nodes: Unremarkable. No enlarged lymph nodes. IMPRESSION: 1. Mild fluid distention of small bowel loops which may represent mild ileus or enteritis. No evidence of bowel obstruction. 2. Mild constipation. 3. Scattered hypoenhancing hepatic lesions, largest measuring 2.2 cm in the posterior right hepatic lobe. These likely represent hemangiomas but remain indeterminate. If there is continued clinical concern, these can be further characterized with ultrasound and/or MRI.
[2018-05-25] MEDS ORDERED: DICYCLOMINE HCL10 MG PO (14:00)
[2018-05-25] MEDS ORDERED: RANITIDINE HCL150 MG ORAL (14:00)
[2018-05-25 14:15] VITALS: BP 115/79
== END 2018-05-25 14:15 | disposition home or self-care (01) ==
LOC: EMR 12:00
DX: K52.9 Noninfective gastroenteritis and colitis, unspecified (principal); K59.00 Constipation, unspecified
CPT/HCPCS: 36415; 74177; 80053; 81003; 81025; 83690; 85025; 96360; 96374; 99284; J2270; Q9967

== ENCOUNTER 2018-12-30 14:56 | Emergency (ER) | payer MEDICARE, MEDICAID ==
[~2018-12-30] VITALS: Ht 160 cm; Wt 88.5 kg
[~2018-12-30 14:56] MED LIST changes: +DICYCLOMINE HCL10 MG PO; +RANITIDINE HCL150 MG ORAL
[2018-12-30 15:55] VITALS: BP 112/85
--- NOTE | 2018-12-30 15:55 | NUR ---
ED Nurse Note: A/OX4. AMBULATED IN TO ER DUE TO COLD SORE WITH EXCEMA FLARE UP AND HEAD COLD X 2 DAYS. 98.1 F ORAL TEMP
[2018-12-30] MEDS ORDERED: ACYCLOVIR400 MG ORAL (16:02)
[2018-12-30] MEDS ORDERED: SUDAFED PE PRE1 EAC3 PO (16:02)
[2018-12-30] MEDS ORDERED: FLONASE ALLERG9.9 ML NS (16:02)
[2018-12-30] MEDS ORDERED: ANTI-ITCH28 G1 TP (16:02)
--- NOTE | 2018-12-30 16:02 | Emergency Room Report ---
History of Present Illness General Chief Complaint: General Complaint Source: Patient Present Illness HPI 48-year-old female patient presents the ER complaining of head cold symptoms and cold sores for the past few days. Reports runny nose. Denies cough. Denies chest pain or shortness of breath. Denies history of asthma or DE. States states not take any medication for relief of symptoms. Reports earache symptoms during this time. Also reports cold sore symptoms during this time. Reports history of cold sores. States has not taken medication for relief of cold sore symptoms. Denies fever. Denies chest pain, shortness of breath. Denies vomiting or diarrhea. Denies recent travel outside the country. Also requesting refill of eczema medication. Allergies: Coded Allergies: No Known Allergies (Unverified , 03/21/17) Patient History Past Medical History: see triage record Last Menstrual Period: none Now: No Reviewed Nursing Documentation: PMH: Agreed; PSxH: Agreed Nursing Documentation-PMH Past Medical History: No History, Except For Review of Systems All Other Systems: negative except mentioned in HPI Physical Exam Vital Signs Date Time Temp Pulse Resp B/P (MAP) Pulse Ox O2 Delivery O2 Flow Rate FiO2 12/30/18 15:48 98.1 71 20 112/85 98 Room Air Sp02 EP Interpretation: reviewed, normal General Appearance: well appearing, no apparent distress, alert, GCS 15, non- toxic Head: normocephalic, atraumatic Eyes: bilateral eye normal inspection, bilateral eye PERRL ENT: hearing grossly normal, normal pharynx, no angioedema, normal voice, TMs + canals normal, uvula midline, moist mucus membranes, nasal congestion, other - Left lateral lower lip: Early cold sore, no surrounding erythema or edema, no drainage Neck: full range of motion, no meningismus, no bony tend Respiratory: lungs clear, normal breath sounds, no rhonchi, no respiratory distress, no accessory muscle use, no wheezing, speaking full sentences Cardiovascular #1: regular rate, rhythm, no edema Genitourinary: no CVA tenderness Musculoskeletal: back normal, digits/nails normal, gait/station normal, normal range of motion, non-tender Neurologic: alert, oriented x3, responsive, motor strength/tone normal, sensory intact Skin: no rash Medical Decision Making PA Attestation Dr. Tinajero is my supervising Physician whom patient management has been discussed with. Diagnostic Impression: Primary Impression: URI (upper respiratory infection) Additional Impressions: Cold sore Hx of eczema ER Course Pt presents to ED c/o rhinorrhea, sinus congestion, cold sore, history of eczema , requesting refill of medication. DDX considered but are not limited to influenza, viral URI, pneumonia, strep throat, rhinitis, sinusitis, otitis media, otitis externa. Patient afebrile, no meningismus, low suspicion for meningitis. VITAL SIGNS are WNL, patient is afebrile. ER COURSE: Cold sore on left lower lip, will provide patient with acyclovir for treatment of cold sore. Advised to take Tylenol for pain. Nasal congestion noted on physical exam, remainder physical exam benign. Lungs clear to auscultation, no wheezes, rhonci or rales. patient afebrile. Low suspicion for pneumonia, will not order CXR at this time. no tonsillar exudates, no pharyngeal erythema, history of cough, no fever, no stridor, uvula midline, low suspicion for peritonsillar abscess. Likely viral etiology of symptoms. Symptomatic treatment. drink plenty of fluids. Salt water gargles for sore throat. Followup with PCP for further treatment and/or referral as needed. ER precautions given. DISCHARGE: At this time pt is stable for d/c to home. Patient is resting comfortably, in no acute distress, nontoxic appearing. Patient to take medications as instructed Will provide with patient care instructions and any necessary prescriptions. Care plan and follow-up instructions provided. Patient instructed to follow-up with primary care provider in 3 - 5 days. Patient questions asked and answered. Patient reports understanding and agreement to treatment plan. ER precautions given. Patient instructed to return to ER immediately for any new or worsening of symptoms including but not limited to increasing SOB, persistent fever, intractable vomiting. - Please note that this Emergency Department Report was dictated using [employer] damage insurance appraiser technology software, occasionally this can lead to erroneous entry secondary to interpretation by the dictation equipment. Last Vital Signs Date Time Temp Pulse Resp B/P (MAP) Pulse Ox O2 Delivery O2 Flow Rate FiO2 12/30/18 15:48 98.1 71 20 112/85 98 Room Air Disposition: HOME, SELF-CARE Condition: Stable Scripts Hydrocortisone 2% Cream (ANTI-ITCH 2% CREAM) Y Cr 28 GM TP BID, #28 GM Prov: Elliot Joiner 12/30/18 Acyclovir* (ACYCLOVIR*) 400 Mg Tablet 400 MG ORAL TID for 7 Days, #21 TAB Prov: Elliot Joiner 12/30/18 Guaifen/Phenyleph/Acetaminophn (Sudafed PE Pressure+Pain+Mucus) 1 Each Tablet 1 EACH PO BID, #24 TAB Prov: Elliot Joiner 12/30/18 Fluticasone Propionate (Flonase Allergy Relief) 9.9 Ml [place].susp 1 SPRAYS NS BID, #9.9 ML Prov: Elliot Joiner 12/30/18 Patient Instructions: Cold Sore, [id number], Eczema, Upper Respiratory Infection, Adult, [id number] Additional Instructions: Followup with primary care provider in 3 -5 days. Followup with dermatology. Do not scratch or itch. Apply cool compresses to affected area. Drink plenty of fluids. Take Tylenol for pain. Take medications as directed. Do not apply topical steroid medication to face or skin creases. SE Benadryl drowsiness, do not take prior to drinking, driving, operating heavy machinery. Take Claritin during the day and Benadryl at night for itching symptoms. Patient questions asked and answered. ER precautions given, patient instructed to return to ER immediately for any new or worsening of symptoms. [facility] [place] [facility] Elliot Joiner Dec 30, 2018 16:02
[2018-12-30 16:16] VITALS: BP 112/85
--- NOTE | 2018-12-30 16:17 | NUR ---
ED Nurse Note: A/Ox4. Pt is cleared by LISA Manzano. DC instruction and prescriptions given, pt verbalized understanding. IV/ID wristband removed. All belongings taken by pt. Denies pain at this time. Pt ambulated out of ER with steady gait.
== END 2018-12-30 16:18 | disposition home or self-care (01) ==
LOC: EMR 15:40
DX: J06.9 Acute upper respiratory infection, unspecified (principal); B00.1 Herpesviral vesicular dermatitis
CPT/HCPCS: 99282

== ENCOUNTER 2019-02-23 13:49 | Emergency (ER) | payer MEDICARE, MEDICAID ==
[~2019-02-23] VITALS: Ht 160 cm; Wt 91.6 kg
[~2019-02-23 13:49] MED LIST changes: +ANTI-ITCH28 G1 TP; +FLONASE ALLERG9.9 ML NS; +SUDAFED PE PRE1 EAC3 PO
[2019-02-23 13:54] VITALS: BP 132/85
[2019-02-23] MEDS ORDERED: Acetaminophen 500mg (ES) tab ORAL ONE (14:30)
[2019-02-23 14:32] LABS: APPEARANCE,URINE CLEAR; BILIRUBIN, URINE NEGATIVE (NEGATIVE); COLOR,URINE PALE YELLOW; GLUCOSE, URINE (UA) NEGATIVE (NEGATIVE); KETONES,URINE 1+ (NEGATIVE); LEUKOCYTE ESTERASE ,URINE 3+ (NEGATIVE); NITRITE,URINE NEGATIVE (NEGATIVE); PH,URINE 6 (4.5-8.0); PROTEIN,URINE NEGATIVE (NEGATIVE); UROBILINOGEN,URINE NORMAL MG/DL (0.0-1.0)
--- NOTE | 2019-02-23 14:42 | Emergency Room Report ---
History of Present Illness General Chief Complaint: Female Urogenital Problems Source: Patient Present Illness HPI 48-year-old female with no significant past medical history here complaining of 1 day of painful urination, vaginal swelling and pain and pruritus. Patient reports that she was last sexually active months ago denies any vaginal discharge denies any hematuria, fever, chills, nausea vomiting. Patient reports that her symptoms started after eating pineapples. Denies abdominal pain, chest pain, S OB, palpitation, and other associated symptoms. Patient is rating the pain a 5 out of 10, intermittent without radiation. He can some Tylenol for pain. Allergies: Coded Allergies: No Known Allergies (Unverified , 03/21/17) Patient History Past Medical History: see triage record Past Surgical History: none Pertinent Family History: none Now: No Immunizations: UTD Reviewed Nursing Documentation: PMH: Agreed; PSxH: Agreed Review of Systems All Other Systems: negative except mentioned in HPI Physical Exam Vital Signs Date Time Temp Pulse Resp B/P (MAP) Pulse Ox O2 Delivery O2 Flow Rate FiO2 02/23/19 13:54 98.4 19 132/85 100 Room Air 02/23/19 13:54 75 Sp02 EP Interpretation: reviewed, normal General Appearance: normal inspection, well appearing, no apparent distress, alert Head: normocephalic, atraumatic Eyes: bilateral eye normal inspection, bilateral eye PERRL ENT: normal ENT inspection Neck: normal inspection, full range of motion Respiratory: normal inspection, chest non-tender, no rhonchi, no wheezing Cardiovascular #1: normal inspection, no edema Gastrointestinal: normal inspection, soft Rectal: deferred Genitourinary: no CVA tenderness, ext genitalia/vag normal Musculoskeletal: normal inspection, back normal Neurologic: normal inspection, alert, oriented x3 Psychiatric: normal inspection, judgement/insight normal Skin: normal inspection, normal color, no rash Lymphatic: normal inspection, no adenopathy Medical Decision Making PA Attestation Diagnosis and treatment plans were reviewed and discussed with my supervising physician Dr. Mckeon Diagnostic Impression: Primary Impression: UTI (lower urinary tract infection) Additional Impression: Vaginitis ER Course 48-year-old female with no significant past medical history here complaining of 1 day of painful urination, vaginal swelling and pain and pruritus. Patient reports that she was last sexually active months ago denies any vaginal discharge denies any hematuria, fever, chills, nausea vomiting. Patient reports that her symptoms started after eating pineapples. Denies abdominal pain, chest pain, S OB, palpitation, and other associated symptoms. Patient is rating the pain a 5 out of 10, intermittent without radiation. He can some Tylenol for pain. Ddx considered but are not limited to UTI, pyelonephritis, staph infection of the vaginal area, yeast infection Vital signs: are WNL, pt. is afebrile H&PE are most consistent with vaginitis secondary to staph infection, UTI ORDERS: UA and urine culture, Diflucan, Keflex, ibuprofen, ED INTERVENTIONS: tylenol 500 DISCHARGE: At this time pt. is stable for d/c to home. Will provide printed patient care instructions, and any necessary prescriptions. Care plan and follow up instructions have been discussed with the patient prior to discharge. Symptoms continue follow-up with a primary care provider for pelvic exam or referral to heel nailing machine operator leuk 3+ UA Last Vital Signs Date Time Temp Pulse Resp B/P (MAP) Pulse Ox O2 Delivery O2 Flow Rate FiO2 02/23/19 13:54 98.4 75 19 132/85 100 Room Air Disposition: HOME, SELF-CARE Condition: Stable Scripts Ibuprofen* (MOTRIN*) 600 Mg Tablet 600 MG ORAL Q8H PRN for For Pain, #15 TAB 0 Refills Prov: Kali Walsh 02/23/19 Fluconazole (FLUCONAZOLE) 100 Mg Tablet 150 MG ORAL ONCE for 1 Day, #1 TAB 0 Refills Prov: Kali Walsh 02/23/19 Cephalexin* (KEFLEX*) 500 Mg Capsule 500 MG ORAL EVERY 8 HOURS for 7 Days, #21 CAP 0 Refills Prov: Kali Walsh 02/23/19 Patient Instructions: Vaginitis, Urinary Tract Infection Additional Instructions: Follow-up with a primary care provider if symptoms continue for pelvic exam and further evaluation such as ultrasound. Kali Walsh Feb 23, 2019 14:42
[2019-02-23] MEDS ORDERED: FLUCONAZOLE100 MG ORAL (14:46)
[2019-02-23] MEDS ORDERED: IBUPROFEN600 MG ORAL (14:46)
[2019-02-23] MEDS ORDERED: CEPHALEXIN500 MG ORAL (14:46)
[2019-02-23 14:53] VITALS: BP 128/70
--- NOTE | 2019-02-23 14:53 | NUR ---
ER DISCHARGE NOTE: Pt was seen due to vaginal itching. Patient is cleared to be discharged per PA, pt is aox4, on room air, with stable vital signs. pt was given dc and prescription instructions, pt was able to verbalize understanding, pt id band removed. pt is able to ambulate with steady gait. pt took all belongings.
== END 2019-02-23 14:53 | disposition home or self-care (01) ==
LOC: EMR 14:10
DX: N39.0 Urinary tract infection, site not specified (principal); N76.0 Acute vaginitis
CPT/HCPCS: 81001; 87086; 99283

== ENCOUNTER 2019-05-09 09:18 | Emergency (ER) | payer MEDICARE, MEDICAID ==
[~2019-05-09] VITALS: Ht 160 cm; Wt 93.0 kg
[~2019-05-09 09:18] MED LIST changes: +CEPHALEXIN500 MG ORAL; +FLUCONAZOLE100 MG ORAL
--- NOTE | 2019-05-09 09:29 | NUR ---
ED Nurse Note: Patient walked into ED due to left leg insect bite since yesterday. patient reports it's swollen and painful. patient is alert awake x4 ambulatory steady gait, breathing unlabored and even. skin is warm to touch.
[2019-05-09 09:31] VITALS: BP 131/82
[2019-05-09] MEDS ORDERED: Vancomycin 1 GM in NS 275 ML IVPB ONE (09:45)
[2019-05-09 10:04] LABS: BASOPHILS % (AUTO) 0.5 % (0.0-2.0); EOSINOPHILS % (AUTO) 6.9 % (0.0-3.0); HEMOGLOBIN 12.4 G/DL (12.0-16.0); MEAN CORPUSCULAR VOLUME 81 FL (80-99); MONOCYTES % (AUTO) 8.2 % (1.0-10.0); NEUTROPHILS % (AUTO) 51.5 % (45.0-75.0); PLATELET COUNT 262 K/UL (150-450); RED BLOOD COUNT 4.67 M/UL (4.20-5.40); RED CELL DISTRIBUTION WIDTH 13.2 % (11.6-14.8); WHITE BLOOD COUNT 4.7 K/UL (4.8-10.8)
[2019-05-09 10:18] LABS: ANION GAP 5 mmol/L (5-15); BLOOD UREA NITROGEN 13 mg/dL (7-18); CALCIUM 9.2 MG/DL (8.5-10.1); CARBON DIOXIDE 30 MMOL/L (21-32); CHLORIDE 106 MMOL/L (98-107); CREATININE 0.8 MG/DL (0.55-1.30); POTASSIUM 3.9 MMOL/L (3.5-5.1); SODIUM 141 MMOL/L (136-145)
[2019-05-09 10:23] LABS: ALANINE AMINOTRANSFERASE 22 U/L (12-78); ALBUMIN 4.1 G/DL (3.4-5.0); ALBUMIN/GLOBULIN RATIO 1.3 (1.0-2.7); ALKALINE PHOSPHATASE 98 U/L (46-116); ASPARTATE AMINO TRANSFERASE 18 U/L (15-37); BILIRUBIN,TOTAL 0.4 MG/DL (0.2-1.0)
--- NOTE | 2019-05-09 10:35 | Emergency Room Report ---
History of Present Illness General Chief Complaint: Animal Bite Source: Patient Present Illness HPI Patient states that a few days ago she noticed some itching on her left leg just inferior to her knee. She states that over the past couple days she has developed an area of erythema. She states that she noticed last night that the center of the swelling had become black in color. She states that also was bleeding a little bit. She denies fever chills. She denies nausea or vomiting. She is unsure whether she had a spider bite. This area occurred spontaneously although she may have been bit by an insect. She has no other lesions. She has no other complaints. Allergies: Coded Allergies: No Known Allergies (Unverified , 03/21/17) Patient History Past Medical History: other - eczema Social History: Denies: smoking, alcohol use, drug use Last Menstrual Period: 11/2018 Now: No Reviewed Nursing Documentation: PMH: Agreed; PSxH: Agreed Nursing Documentation-PMH Past Medical History: No History, Except For Review of Systems All Other Systems: negative except mentioned in HPI Physical Exam Vital Signs Date Time Temp Pulse Resp B/P (MAP) Pulse Ox O2 Delivery O2 Flow Rate FiO2 05/09/19 09:23 98.4 62 16 134/81 (98) 100 Room Air Sp02 EP Interpretation: reviewed, normal General Appearance: no apparent distress, alert, GCS 15, non-toxic Head: normocephalic, atraumatic Eyes: bilateral eye normal inspection, bilateral eye PERRL ENT: hearing grossly normal, normal pharynx, no angioedema, normal voice Neck: full range of motion, supple/symm/no masses Respiratory: no respiratory distress, no retraction, no accessory muscle use, speaking full sentences Cardiovascular #1: regular rate, rhythm, no edema Rectal: deferred Musculoskeletal: back normal, gait/station normal, normal range of motion, non- tender, other - See below in skin exam Neurologic: alert, oriented x3, responsive, motor strength/tone normal, sensory intact, speech normal Psychiatric: judgement/insight normal, memory normal, mood/affect normal, no suicidal/homicidal ideation Skin: warm/dry, well hydrated, other - L. medial lower leg [id number] area of erythema and warmth with central area dark/black skin approximately 1cm. See photograph attached to the EMR. Medical Decision Making Diagnostic Impression: Primary Impression: Cellulitis Additional Impression: Necrosis of center of wound ER Course This patient has an area of cellulitis on the left leg. I am unsure if the etiology is a spider bite. Brown recluse spider is in my differential diagnosis. However, more likely in this patient is MRSA. Patient was given IV vancomycin and I will place the patient on oral doxycycline to cover for MRSA. The patient was also instructed on wound care precautions and very close wound monitoring with her primary care physician. Overall, she is nontoxic and well- appearing without systemic symptoms. She is given close return precautions and follow-up instructions. Laboratory Tests Test 05/09/19 09:53 White Blood Count 4.7 K/UL (4.8-10.8) L Red Blood Count 4.67 M/UL (4.20-5.40) Hemoglobin 12.4 G/DL (12.0-16.0) Hematocrit 38.0 % (37.0-47.0) Mean Corpuscular Volume 81 FL (80-99) Mean Corpuscular Hemoglobin 26.5 PG (27.0-31.0) L Mean Corpuscular Hemoglobin Concent 32.6 G/DL (32.0-36.0) Red Cell Distribution Width 13.2 % (11.6-14.8) Platelet Count 262 K/UL (150-450) Mean Platelet Volume 6.4 FL (6.5-10.1) L Neutrophils (%) (Auto) 51.5 % (45.0-75.0) Lymphocytes (%) (Auto) 33.0 % (20.0-45.0) Monocytes (%) (Auto) 8.2 % (1.0-10.0) Eosinophils (%) (Auto) 6.9 % (0.0-3.0) H Basophils (%) (Auto) 0.5 % (0.0-2.0) Sodium Level 141 MMOL/L (136-145) Potassium Level 3.9 MMOL/L (3.5-5.1) Chloride Level 106 MMOL/L (98-107) Carbon Dioxide Level 30 MMOL/L (21-32) Anion Gap 5 mmol/L (5-15) Blood Urea Nitrogen 13 mg/dL (7-18) Creatinine 0.8 MG/DL (0.55-1.30) Estimate Glomerular Filtration Rate > 60 mL/min (>60) Glucose Level 98 MG/DL (74-106) Calcium Level 9.2 MG/DL (8.5-10.1) Total Bilirubin 0.4 MG/DL (0.2-1.0) Aspartate Amino Transferase (AST) 18 U/L (15-37) Alanine Aminotransferase (ALT) 22 U/L (12-78) Alkaline Phosphatase 98 U/L (46-116) Total Protein 7.3 G/DL (6.4-8.2) Albumin 4.1 G/DL (3.4-5.0) Globulin 3.2 g/dL Albumin/Globulin Ratio 1.3 (1.0-2.7) Last Vital Signs Date Time Temp Pulse Resp B/P (MAP) Pulse Ox O2 Delivery O2 Flow Rate FiO2 05/09/19 09:31 98.4 61 15 131/82 100 Room Air Status: improved Disposition: HOME, SELF-CARE Condition: Improved Referrals: NON PHYSICIAN (PCP) Cece Castellon DO May 09, 2019 10:35
[2019-05-09] MEDS ORDERED: DOXYCYCLINE MO100 MG ORAL (10:39)
--- NOTE | 2019-05-09 10:46 | NUR ---
ED Nurse Note: insect bite picture taken and uploaded
--- NOTE | 2019-05-09 11:28 | NUR ---
ED Nurse Note: PT LAYING PEACEFULLY IN BED IN NAD. AOX4. PRESCRIPTION AND DISCHARGE PAPERWORK EXPLAINED TO PT. PT VERBALIZES UNDERSTANDING AND ALL QUESTIONS ANSWERED. PRESCRIPTION SENT ELECTRONICALLY TO PT'S PHARMACY. DISCHARGE PAPERWORK GIVEN TO PT, IV AND ID WRISTBAND REMOVED FROM PT. PT WALKED OUT OF ER WITH STEADY GAIT AND ALL BELONGINGS.
[2019-05-09 11:29] VITALS: BP 128/78
== END 2019-05-09 11:31 | disposition home or self-care (01) ==
LOC: EMR 09:44
DX: L03.116 Cellulitis of left lower limb (principal); I96 Gangrene, not elsewhere classified
CPT/HCPCS: 36415; 80053; 85025; 96365; 99284; J3370; J7050

== ENCOUNTER 2019-11-11 15:17 | Emergency (ER) | payer MEDICARE, MEDICAID ==
[~2019-11-11] VITALS: Ht 160 cm; Wt 93.9 kg
[~2019-11-11 15:17] MED LIST changes: +DOXYCYCLINE MO100 MG ORAL
[2019-11-11 15:29] VITALS: BP 125/87
--- NOTE | 2019-11-11 15:30 | NUR ---
ED Nurse Note: pt walked in to ER from home due to Rt side of face pain and swelling since last night. pt aao x4 and ambulatory. skin clean and intact. calm and cooperative. no visible Rt side of face swelling but pt c/o pain 05/28. no cardiac or pulmonary distress noted at this moment.
[2019-11-11] MEDS ORDERED: AMOXICILLIN500 MG ORAL (15:43)
--- NOTE | 2019-11-11 15:44 | Emergency Room Report ---
History of Present Illness General Chief Complaint: Pain Source: Medical Record Present Illness HPI 49-year-old female presenting with right jaw pain and facial swelling associated with throat pain started yesterday. Patient took 2 tablets over-the- counter Advil with minimal improvement. Patient denies any dental injuries or trauma. She denies any history of similar facial edema. She denies any ear pain. She denies any recent illness. Of note patient last saw dentist this year and denies any recent dental procedures Allergies: Coded Allergies: No Known Allergies (Unverified , 03/21/17) Patient History Now: No Nursing Documentation-[facility] Past Medical History: No History, Except For Review of Systems Constitutional: Denies: chills, fever ENT: Reports: throat pain, mouth pain; Denies: ear pain, nose pain, nose congestion, throat swelling Respiratory: Denies: cough, shortness of breath Cardiovascular: Denies: chest pain, palpitations Gastrointestinal: Denies: diarrhea, vomiting Genitourinary: Denies: hematuria, pain Musculoskeletal: Denies: joint swelling Skin: Denies: rash, lesions Neurological: Denies: headache, dizziness Physical Exam Vital Signs Date Time Temp Pulse Resp B/P (MAP) Pulse Ox O2 Delivery O2 Flow Rate FiO2 11/11/19 15:23 98.4 72 18 125/87 (100) 100 Room Air Sp02 EP Interpretation: reviewed General Appearance: well appearing, no apparent distress, non-toxic Head: normocephalic, atraumatic Eyes: bilateral eye normal inspection ENT: hearing grossly normal, EOM grossly intact, normal voice, uvula midline, moist mucus membranes, other - Right tympanic membrane dull, no bulging, no pus noted, mild facial edema on the right lower jaw, no dental abscess Neck: supple Respiratory: lungs clear, normal breath sounds, no respiratory distress, speaking full sentences Cardiovascular #1: regular rate, rhythm, normal capillary refill Cardiovascular #2: 2+ radial (R), 2+ radial (L) Gastrointestinal: soft, non-distended Rectal: deferred Musculoskeletal: moves extm spontaneously, no lower extremity edema Neurologic: grossly normal Psychiatric: mood/affect normal Skin: warm/dry, normal turgor Lymphatic: other - Right sub-mandibular lymphadenopathy Medical Decision Making Diagnostic Impression: Primary Impression: Edema of face Additional Impressions: Erythema of pharynx Submandibular lymphadenopathy ER Course 49-year-old female presenting to emergency room with right facial swelling, left submandibular lymphadenopathy, posterior pharynx erythematous and dull right ear. Symptoms started yesterday. Will treat with antibiotics as concern for strep throat given [facility] Criteria. Patient advised to follow-up with primary care doctor in 2 to 3 days for reevaluation, and to be seen at dentist office for further evaluation. Last Vital Signs Date Time Temp Pulse Resp B/P (MAP) Pulse Ox O2 Delivery O2 Flow Rate FiO2 11/11/19 15:29 98.4 86 18 125/87 100 Room Air Disposition: HOME, SELF-CARE Condition: Stable Scripts Hydrocodone Bit/Acetaminophen 5-325* (NORCO 5-325*) 1 Each Tablet 1 TAB ORAL Q4H PRN for For Pain for 2 Days, #6 TAB 0 Refills Prov: Dinesh Ames M.D. 11/11/19 Ibuprofen* (MOTRIN*) 600 Mg Tablet 600 MG ORAL Q8H PRN for For Pain, #30 TAB 0 Refills Prov: Dinesh Ames M.D. 11/11/19 Amoxicillin* (AMOXIL*) 500 Mg Capsule 500 MG ORAL THREE TIMES A DAY for 10 Days, #30 CAP Prov: Dinesh Ames M.D. 11/11/19 Referrals: [facility] Patient Instructions: Strep Throat Additional Instructions: Follow-up with your primary care doctor in 2 to 3 days for reevaluation. Please see a dentist by the end of the week. Return to emergency room if you have difficulty swallowing, increased swelling, any new symptoms. Dinesh Ames M.D. Nov 11, 2019 15:44
[2019-11-11] MEDS ORDERED: IBUPROFEN600 MG ORAL (15:48)
[2019-11-11] MEDS ORDERED: NORCO 5-325 TA1 EACH ORAL (15:48)
--- NOTE | 2019-11-11 16:05 | NUR ---
ED Nurse Note: pt cleared to be d/c per ERMD, pt discharge and aftercare instruction provided w/ prescription, pt education done via discussion and handout, pt advised to follow up with pcp and dentist or return to ed if sx worsen, pt verbalized understanding and agrees with plan, vss, ambulatory w/steady gait, left w/ all belongings.
== END 2019-11-11 16:15 | disposition home or self-care (01) ==
LOC: EMR 16:14
DX: R60.0 Localized edema (principal); L53.9 Erythematous condition, unspecified; R59.1 Generalized enlarged lymph nodes
CPT/HCPCS: 99282

== ENCOUNTER 2020-01-16 03:38 | Emergency (ER) | payer MEDICARE, MEDICAID ==
[~2020-01-16] VITALS: Ht 160 cm; Wt 93.0 kg
[~2020-01-16 03:38] MED LIST changes: +AMOXICILLIN500 MG ORAL; +GUAIFENESI100 MG/5 M ORAL; +NORCO 5-325 TA1 EACH ORAL; +TAMIFLU75 MG ORAL
[2020-01-16 03:49] VITALS: BP 121/78
--- NOTE | 2020-01-16 03:50 | NUR ---
ER Nurse Note: Pt walked in c/o nasal congestion, sneezing with yellow mucus since 2 days. Pt denies recent travels outside of the [place] in the past 12 days. Pt denies n/v, shortness of breath, chest pain. Will continue to montior.
[2020-01-16] MEDS ORDERED: PSEUDOEPHEDRINE60 MG PO (04:02)
[2020-01-16] MEDS ORDERED: FLONASE ALLERG9.9 ML NS (04:02)
[2020-01-16] MEDS ORDERED: GUAIFENESIN-DM 15 ML PO (04:02)
--- NOTE | 2020-01-16 04:03 | Emergency Room Report ---
History of Present Illness General Chief Complaint: Upper Respiratory Illness Source: Patient Present Illness HPI Is a 49-year-old female with no past medical history. She presents with chief complaint of stuffy nose and head congestion. Onset for less than 24 hours. She cannot sleep because she cannot breathe through her nose. No fever or chills but has been achy body pain. Has slight cough. Coughing is nonproductive nature. Blowing her nose. Also with itchiness to her nose. Also sneezing. Denies any other complaint. No nausea vomiting or diarrhea. Allergies: Coded Allergies: No Known Allergies (Unverified , 03/21/17) Patient History Past Medical History: see triage record, old chart reviewed Past Surgical History: none Pertinent Family History: none Social History: Denies: smoking Now: No Immunizations: other Reviewed Nursing Documentation: PMH: Agreed; PSxH: Agreed Review of Systems Eye: Denies: eye pain, blurred vision ENT: Reports: nose congestion; Denies: ear pain, throat swelling Respiratory: Reports: cough, shortness of breath Cardiovascular: Denies: chest pain, palpitations Gastrointestinal: Denies: abdominal pain, diarrhea, nausea, vomiting Musculoskeletal: Denies: back pain, joint pain Skin: Denies: rash Neurological: Denies: headache, numbness Endocrine: Denies: increased thirst, increased urine Hematologic/Lymphatic: Denies: easy bruising All Other Systems: negative except mentioned in HPI Physical Exam Vital Signs Date Time Temp Pulse Resp B/P (MAP) Pulse Ox O2 Delivery O2 Flow Rate FiO2 01/16/20 03:43 97.5 81 16 121/78 (92) 95 Room Air Sp02 EP Interpretation: reviewed, normal General Appearance: well appearing, no apparent distress, alert Head: normocephalic, atraumatic Eyes: bilateral eye PERRL, bilateral eye EOMI ENT: hearing grossly normal, normal pharynx, nasal congestion Neck: full range of motion, supple, no meningismus Respiratory: chest non-tender, lungs clear, normal breath sounds Cardiovascular #1: regular rate, rhythm, no murmur Gastrointestinal: normal bowel sounds, non tender, no mass, no organomegaly, no bruit, non-distended Musculoskeletal: back normal, normal range of motion, gait/station normal Psychiatric: mood/affect normal Medical Decision Making Diagnostic Impression: Primary Impression: Upper respiratory infection Qualified Codes: J06.9 - Acute upper respiratory infection, unspecified ER Course She presents with a viral illness. No evidence of any meningitis, sepsis, pneumonia or other serious bacterial infection. Last Vital Signs Date Time Temp Pulse Resp B/P (MAP) Pulse Ox O2 Delivery O2 Flow Rate FiO2 01/16/20 03:49 97.5 81 16 121/78 95 Room Air Status: improved Disposition: HOME, SELF-CARE Condition: Stable Scripts Guaifenesin/Dextromethorphan (Guaifenesin-Dm 100-10 mg/5 ml) 5 Ml Liquid 5 ML PO Q6HR, #118 ML Prov: Zach Stovall MD 01/16/20 Fluticasone Propionate (Flonase Allergy Relief) 9.9 Ml Center.susp 9.9 ML NS BID, #1 UNIT Prov: Zach Stovall MD 01/16/20 Pseudoephedrine Hcl* (SUDAFED*) 60 Mg Tablet 60 MG PO Q6H, #30 TAB Prov: Zach Stovall MD 01/16/20 Patient Instructions: Upper Respiratory Infection, Adult Additional Instructions: You have a viral upper respiratory infection (a cold). Antibiotics does not treat this. Increase fluids. Rest. Follow-up with your doctor in 7 days. Return if symptoms worsen. Zach Stovall MD Jan 16, 2020 04:03
[2020-01-16 04:10] VITALS: BP 121/78
--- NOTE | 2020-01-16 04:10 | NUR ---
ED Nurse Note: Pt cleared by health care Provider for discharge. All questions answered by ERMD and nurse. DC instructions/prescription was given and explained to pt and verbalized understanding of teachings. Instructed pt to follow up with primary care physican within one week. All medical deviecs such as ID band removed. Pt is AAO x4, ambulatory and left with all personal belongings.
[2020-01-22] MEDS ORDERED: BENADRYL25 M3 PO (18:47)
== END 2020-01-16 04:10 | disposition home or self-care (01) ==
LOC: EMR 04:02
DX: J06.9 Acute upper respiratory infection, unspecified (principal)
CPT/HCPCS: 99282

== ENCOUNTER → 2020-01-22 | Emergency (ER) | payer MEDICARE, MEDICAID ==
[~2020-01-22] VITALS: Ht 160 cm; Wt 94.3 kg
[~2020-01-22] MED LIST changes: +Acetaminophen 500mg (ES) tab ORAL ONE; +DiphenhydrAMINE & Zinc 28g Cream TOPIC ONE; +GUAIFENESIN-DM 15 ML PO; +Hydrocortisone 1% Cr 15gm TOPIC ONE; +Hydrocortisone 2.5% Oint 30gm TOPIC ONE; +PSEUDOEPHEDRINE60 MG PO
--- NOTE | 2020-01-22 18:30 | NUR ---
ED Nurse Note: Pt walked in from home c/o bug bite on right upper arm. Pt reports a lot of itching and pain since last night. Respirations even and unlabored on room air. Vitals stable as documented.
--- NOTE | 2020-01-22 18:45 | Emergency Room Report ---
History of Present Illness General Chief Complaint: Animal Bite Source: Patient Present Illness HPI 49-year-old female presents with bug bites the arms, and leg, every time she visits her mother's house she gets bit, no fevers no chills, patient endorses itchiness, no aggravating relieving factor severity is mild constant patient presents for evaluation Allergies: Coded Allergies: No Known Allergies (Unverified , 03/21/17) Patient History Past Medical History: see triage record Last Menstrual Period: menopause Reviewed Nursing Documentation: PMH: Agreed; PSxH: Agreed Nursing Documentation-PMH Past Medical History: No Stated History Review of Systems All Other Systems: negative except mentioned in HPI Physical Exam Vital Signs Date Time Temp Pulse Resp B/P (MAP) Pulse Ox O2 Delivery O2 Flow Rate FiO2 01/22/20 18:26 97.5 70 15 120/78 (92) 98 Room Air General Appearance: well appearing, no apparent distress Head: normocephalic, atraumatic ENT: hearing grossly normal, normal voice Neck: full range of motion, supple Respiratory: no respiratory distress, speaking full sentences Musculoskeletal: no calf tenderness Neurologic: alert, normal gait Psychiatric: mood/affect normal Skin: other - Multiple bites on arm, leg, with urticarial surrounding a punctate lesion Medical Decision Making Diagnostic Impression: Primary Impression: Insect bite Qualified Codes: W57.XXXA - Bitten or stung by nonvenomous insect and other nonvenomous arthropods, initial encounter ER Course 49-year-old female presents with multiple insect bites, no evidence of infection , counseled patient to stop scratching will provide Benadryl cream as well as hydrocortisone cream Disposition home with return precautions follow-up with PCP Last Vital Signs Date Time Temp Pulse Resp B/P (MAP) Pulse Ox O2 Delivery O2 Flow Rate FiO2 01/22/20 18:26 97.5 70 15 120/78 (92) 98 Room Air Disposition: HOME, SELF-CARE Condition: Stable Scripts Diphenhydramine HCl (Benadryl) 25 Mg Capsule 25 MG PO Q6HR PRN for Itching/Pruritis, #30 CAP Prov: Bong Manrique MD 01/22/20 Referrals: [facility] Patient Instructions: Insect Bite, [id number] Additional Instructions: The patient was provided with discharge instructions, notified to follow-up with a primary care doctor and or specialist in the next 24-48 hours, and to return to the ED if they have worsening of their symptoms. Please note that this report is being documented using [employer] technology. This can lead to erroneous entry secondary to incorrect interpretation by the dictating instrument. Bong Manrique MD Jan 22, 2020 18:45
--- NOTE | 2020-01-22 18:55 | NUR ---
ER DISCHARGE NOTE: Patient is cleared to be discharged per ERMD, pt is aox4, on room air, with stable vital signs as documented. pt was given dc and prescription instructions and was able to verbalize understanding. pt id band removed. pt is able to ambulate with steady gait. pt took all belongings.
[2020-01-22 19:13] VITALS: BP 115/74
== END | disposition home or self-care (01) ==
LOC: EMR 18:40
DX: L98.9 Disorder of the skin and subcutaneous tissue, unspecified (principal); L50.9 Urticaria, unspecified; W57.XXXA Bitten or stung by nonvenomous insect and other nonvenomous arthropods, initial encounter; Y92.009 Unspecified place in unspecified non-institutional (private) residence as the place of occurrence of the external cause
CPT/HCPCS: 99282

== ENCOUNTER 2020-10-10 08:18 | Emergency (ER) | payer MEDICARE, MEDICAID ==
[~2020-10-10] VITALS: Ht 160 cm; Wt 98.4 kg
[~2020-10-10 08:18] MED LIST changes: -Acetaminophen 500mg (ES) tab ORAL ONE; -DiphenhydrAMINE & Zinc 28g Cream TOPIC ONE; -Hydrocortisone 1% Cr 15gm TOPIC ONE; -Hydrocortisone 2.5% Oint 30gm TOPIC ONE; +IBUPROFEN600 M1 ORAL
--- NOTE | 2020-10-10 08:29 | NUR ---
ED Nurse Note: Pt ambulated to ed c/o nonproductive cough x 2 days. pt is afebrile upon triage 97.8. Pt has no other complaints at this time.
[2020-10-10 08:30] VITALS: BP 126/86
--- NOTE | 2020-10-10 08:40 | Emergency Room Report ---
History of Present Illness General Chief Complaint: Upper Respiratory Illness Source: Patient Present Illness HPI Patient is a 50-year-old female presents for increased cough and nasal congestion. Had 3 days of intermittently productive cough with increased associated body aches. Denies any vomiting or diarrhea. Denies any prior medical history. 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 COVID-19 Screening: PUI COVID-19 COVID-19 Testing Source: 1 month ago Patient History Past Medical History: see triage record Now: No Reviewed Nursing Documentation: PMH: Agreed; PSxH: Agreed Review of Systems All Other Systems: negative except mentioned in HPI Physical Exam Vital Signs Date Time Temp Pulse Resp B/P (MAP) Pulse Ox O2 Delivery O2 Flow Rate FiO2 10/10/20 08:23 97.9 62 20 126/86 (99) 97 Room Air General Appearance: well appearing, no apparent distress, alert, GCS 15 Head: normocephalic, atraumatic ENT: hearing grossly normal, normal voice Neck: full range of motion, supple Respiratory: lungs clear, no respiratory distress, no accessory muscle use, speaking full sentences Cardiovascular #1: normal inspection, regular rate, rhythm Gastrointestinal: normal inspection, soft Musculoskeletal: no calf tenderness Neurologic: normal gait Psychiatric: mood/affect normal Skin: no rash Medical Decision Making Diagnostic Impression: Primary Impression: URI (upper respiratory infection) ER Course Patient presented for cough. Differential diagnosis include was not limited to coronavirus infection, upper restaurant infection, sinusitis, among others. Chest x-ray was ordered due to patient's recent increased cough.X-ray 1 view interpreted by me showed normal cardiac size without evident infiltrate no pleural effusions. Patient was given medications for cough. Does not appear to have any evidence of respiratory distress. Patient was advised to return if she had any worsening condition or other concerns. She is advised to have outpatient coronavirus testing and self isolate. This medical record is generated with [employer] alumni relations coordinator software. There may be some alumni relations coordinator discrepancies related to use of this software Last Vital Signs Date Time Temp Pulse Resp B/P (MAP) Pulse Ox O2 Delivery O2 Flow Rate FiO2 10/10/20 08:30 97.9 62 20 126/86 97 Room Air Status: improved Disposition: HOME, SELF-CARE Condition: Stable Scripts Albuterol Sulfate (VENTOLIN HFA) 18 Gm Hfa.aer.ad 2 PUFFS INH EVERY 6 HOURS, #18 GM 0 Refills Prov: Navarro Mckeon MD 10/10/20 Guaifenesin/Dextromethorphan (Guaifenesin-Dm 100-10 mg/5 ml) 5 Ml Liquid 5 ML PO Q6HR, #118 ML Prov: Navarro Mckeon MD 10/10/20 Navarro Mckeon MD Oct 10, 2020 08:40
[2020-10-10] MEDS ORDERED: guaiFENesin /DM 10ml syrup ORAL ONE (08:45)
[2020-10-10 09:20] VITALS: BP 115/79
--- NOTE | 2020-10-10 09:20 | NUR ---
ER DISCHARGE NOTE: Patient is cleared to be discharged per ERMD, pt is aox4, on room air, with stable vital signs. pt was given dc and prescription instructions, pt was able to verbalize understanding, pt id band removed. pt is able to ambulate with steady gait. pt took all belongings.
[2020-10-10] MEDS ORDERED: GUAIFENESIN-DM 15 ML PO (09:27)
[2020-10-10] MEDS ORDERED: VENTOLIN HFA18 GM INH (09:27)
--- NOTE | 2020-10-10 09:51 | Diagnostic Imaging Report ---
EXAM: XR Chest, 1 View CLINICAL HISTORY: SOB TECHNIQUE: Frontal view of the chest. COMPARISON: No relevant prior studies available. FINDINGS/IMPRESSION: There is no focal consolidation, pleural effusion, or pneumothorax. The heart size is within normal limits.
== END 2020-10-10 09:20 | disposition home or self-care (01) ==
LOC: EMR 08:45
DX: J06.9 Acute upper respiratory infection, unspecified (principal)
CPT/HCPCS: 71045; 86710; 99283